=== PATIENT | female | born 1980 | race Caucasian/White ===

== ENCOUNTER 2017-02-16 10:36 | Emergency (ER) | payer BC ==
[2017-02-16 10:42] VITALS: BP 127/78; BMI 30.1
[2017-02-16] MEDS ORDERED: NS 1000 ML 1,000 ML IV ONE (10:53)
--- NOTE | 2017-02-16 10:54 | DR.GENAD ---
HPI - PCP Primary Care Physician: dr negrete - Complaint/Symptoms Chief Complaint Doctors Comments: Patient is a diabetic and he gets blood drawn frequently to monitor his A1C. This AM as the blood draw was complete he blacked out, started shaking ?generalized that lasted for two minutes. He was diaphoretic. There is no history of heart disease. Chief Complaint:: patient was at work and they did blood work this morning and he passed out. - Source History Provided: Patient - Mode of Arrival Mode of Arrival: Ambulatory - Timing Onset of Chief Complaint: 02/16/17 PMH - PMH Past Medical History: Yes Past Medical History: Anemia, Diabetes Past Surgical History: No - Family History History of Family Medical Conditions: No - Social History Does patient currently use any type of tobacco product: No Have you used tobacco products in the last 12 months: No Type of Tobacco Use: None Does any household member use tobacco: No Alcohol Use: None Do you use any recreational Drugs:: No Lives With: Family Lives Where: Home - infectious screening In the last 2 months have you had wt loss of >10#?: NO Have you had fever, night sweats or hemotysis?: No Have you traveled outside the country in the last 6 months?: No Isolation: Standard ROS - Review of Systems Eyes: No Symptoms Reported ENTM: No Symptoms Reported Respiratoy: No Symptoms Reported Cardiovascular: No Symptoms Reported Gastrointestinal/Abdominal: No Symptoms Reported Genitourinary: No Symptoms Reported Neurological: No Symptoms Reported Musculoskeletal: No Symptoms Reported Integumentary: No Symptoms Reported Hematologic/Lymphatic: No Symptoms Reported Endocrine: No Symptoms Reported Psychiatric: No Symptoms Reported All Other Systems: Reviewed and Negative PE - Vital Signs Vitals: Temperature 96.0 F Pulse Rate 71 Respiratory Rate 16 Blood Pressure 127/78 O2 Sat by Pulse Oximetry 99 - General Limitations: No Limitations General Appearance: Alert, In No Apparent Distress - Head Head Exam: Normal Inspection, Atraumatic - Eyes Eye exam: Normal Appearance, PERRL, EOMI - ENT ENT Exam: Normal Exam External Ear Exam: Normal External Inspection TM/Canal Exam: Bilateral Normal Nose Exam: Normal Nose Exam Mouth Exam: Normal Inspection Throat Exam: Normal Inspection - Neck Neck Exam: Normal Inspection, Full ROM - Chest Chest Inspection: Normal Inspection - Respiratory Respiratory Exam: Normal Lung Sounds Bilat Respiratory Exam: Bilateral Clear to Auscultation - Cardiovascular Cardiovascular Exam: Regular Rate, Normal Rhythm - Extremities Extremities Exam: Normal Inspection, Full ROM - Back Back Exam: Normal Inspection - Neurologic Neurological Exam: Alert, Oriented X3, CN II-XII Intact - Psychiatric Psychiatric Exam: Normal Affect, Normal Mood - Skin Skin Exam: Warm, Dry, Intact MDM - Differential Diagnosis Differential Diagnosis: seizure ROR - Labs Reviewed Result Diagrams: 02/16/17 11:05 02/16/17 11:05 Laboratory: WBC 10.2 X10^3/uL (3.6-10.0) H 02/16/17 11:05 RBC 6.15 X10^6/uL (3.5-5.4) H 02/16/17 11:05 Hgb 11.6 g/dL (12.0-16.0) L 02/16/17 11:05 Hct 36.0 % (36.0-47.0) 02/16/17 11:05 MCV 58.6 fL (80.0-100.0) L 02/16/17 11:05 MCH 18.9 pg (27.0-34.0) L 02/16/17 11:05 MCHC 32.3 g/dL (33.0-35.0) L 02/16/17 11:05 RDW 15.5 % (11.6-16.5) 02/16/17 11:05 Plt Count 177 X10^3/uL (150.0-450.0) 02/16/17 11:05 Plt Count Comment Adequate (ADEQUATE) 02/16/17 11:05 MPV 9.0 fL (7.4-11.0) 02/16/17 11:05 Neut % 76.2 % (42.0-75.0) H 02/16/17 11:05 Lymph % 18.0 % (21.0-51.0) L 02/16/17 11:05 [place] % 4.8 % (0.0-13.0) 02/16/17 11:05 Eos % 0.4 % (0.9-2.9) L 02/16/17 11:05 Baso % 0.6 % (0.2-1.0) 02/16/17 11:05 Neut # 7.8 x10^3/uL (2.2-4.8) H 02/16/17 11:05 Lymph # 1.8 X10^3/uL (1.3-2.9) 02/16/17 11:05 [place] # 0.5 x10^3/uL (0.3-0.8) 02/16/17 11:05 Eos # 0.0 x10^3/uL (0.0-0.2) 02/16/17 11:05 Baso # 0.1 X10^3/uL (0.0-0.1) 02/16/17 11:05 Absolute Nucleated RBC 0.1 /100WBC 02/16/17 11:05 Plt Morphology Comment Normal (NORMAL) 02/16/17 11:05 RBC Morphology Abnormal (NORMAL) A 02/16/17 11:05 Hypochromasia 2+ A 02/16/17 11:05 Microcytosis 2+ A 02/16/17 11:05 Sodium 142 mmol/L (136-145) 02/16/17 11:05 Corrected Sodium 144 mmol/L (136-145) 02/16/17 11:05 Potassium 4.0 mmol/L (3.5-5.1) 02/16/17 11:05 Chloride 107 mmol/L (98-107) 02/16/17 11:05 Carbon Dioxide 27.1 mmol/L (21-32) 02/16/17 11:05 BUN 12 mg/dL (7-18) 02/16/17 11:05 Creatinine 1.11 mg/dL (0.55-1.02) H 02/16/17 11:05 Est GFR (MDRD) Af Amer > 60 (>60) 02/16/17 11:05 Est GFR (MDRD) Non-Af 59 (>60) 02/16/17 11:05 Glucose 163 mg/dL (65-99) H 02/16/17 11:05 Hemoglobin A1c 7.7 % (4.5-6.2) H 02/16/17 11:05 Calcium 8.4 mg/dL (8.5-10.1) L 02/16/17 11:05 Corrected Calcium TNP 02/16/17 11:05 Total Bilirubin 1.30 mg/dL (0.2-1.0) H 02/16/17 11:05 AST 38 Units/L (15-37) H 02/16/17 11:05 ALT 79 Units/L (12-78) H 02/16/17 11:05 Alkaline Phosphatase 37 Units/L (46-116) L 02/16/17 11:05 Total Protein 6.3 g/dL (6.4-8.2) L 02/16/17 11:05 Albumin 3.7 g/dL (3.4-5.0) 02/16/17 11:05 Globulin 2.6 g/dL (2.5-4.5) 02/16/17 11:05 Albumin/Globulin Ratio 1.4 Ratio (1.1-2.1) 02/16/17 11:05 - EKG [place]: Normal Rhythm: NSR Block: None Hypertrophy: None ST: Normal - Diagnosis Discharge Problem: Syncope, non cardiac - Discharge Plan Condition: Stable - Follow ups/Referrals Follow ups/Referrals: NFD,None [Primary Care Provider] - 3 days - Instructions
[2017-02-16 11:24] LABS: BASOPHILS # (AUTO) 0.1 X10^3/uL (0.0-0.1); BASOPHILS % (AUTO) 0.6 % (0.2-1.0); EOSINOPHILS % (AUTO) 0.4 % (0.9-2.9); HEMOGLOBIN 11.6 g/dL (12.0-16.0); LYMPHOCYTES # (AUTO) 1.8 X10^3/uL (1.3-2.9); MEAN CORPUSCULAR HEMOGLOBIN 18.9 pg (27.0-34.0); MEAN CORPUSCULAR HGB CONC 32.3 g/dL (33.0-35.0); MEAN CORPUSCULAR VOLUME 58.6 fL (80.0-100.0); MONOCYTES # (AUTO) 0.5 x10^3/uL (0.3-0.8); MONOCYTES % (AUTO) 4.8 % (0.0-13.0); NEUTROPHILS # (AUTO) 7.8 x10^3/uL (2.2-4.8); NEUTROPHILS % (AUTO) 76.2 % (42.0-75.0); PLATELET COUNT 177 X10^3/uL (150.0-450.0); RED BLOOD COUNT 6.15 X10^6/uL (3.5-5.4); RED CELL DISTRIBUTION WIDTH 15.5 % (11.6-16.5); WHITE BLOOD COUNT 10.2 X10^3/uL (3.6-10.0)
[2017-02-16 11:26] LABS: HEMOGLOBIN A1C 7.7 % (4.5-6.2)
[2017-02-16 11:29] LABS: ALANINE AMINOTRANSFERASE 79 Units/L (12-78); ALBUMIN 3.7 g/dL (3.4-5.0); ALKALINE PHOSPHATASE 37 Units/L (46-116); ASPARTATE AMINO TRANSFERASE 38 Units/L (15-37); BLOOD UREA NITROGEN 12 mg/dL (7-18); CALCIUM 8.4 mg/dL (8.5-10.1); CARBON DIOXIDE 27.1 mmol/L (21-32); CHLORIDE 107 mmol/L (98-107); COR NA(FOR HYPERGLY) 144 mmol/L (136-145); CREATININE 1.11 mg/dL (0.55-1.02); GLUCOSE 163 mg/dL (65-99); SODIUM 142 mmol/L (136-145); TOTAL PROTEIN 6.3 g/dL (6.4-8.2); eGFR BLACK RACES > 60 (>60); eGFR NON BLACK RACES 59 (>60)
[2017-02-16 11:35] LABS: HYPOCHROMASIA 2+; MICROCYTOSIS 2+; PLATELET MORPHOLOGY COMMENT NORMAL (NORMAL)
== END 2017-02-16 12:08 | disposition home or self-care (01) ==
LOC: ER 10:49
DX: R55 Syncope and collapse (principal)
CPT/HCPCS: 36415; 80053; 83036; 85025; 93005; 93010; 96365; 99282